=== PATIENT | female | born 1945 | race Caucasian/White ===

== ENCOUNTER 2022-02-04 14:48 | Outpatient (CLI) | payer MEDICARE | END 2022-02-04 14:49 | disposition home or self-care (01) | LOC: CSHULT 14:48 | PROVIDERS: ATTEND Internal Medicine | DX: R06.00 Dyspnea, unspecified (principal); I51.9 Heart disease, unspecified | CPT/HCPCS: 93306 ==

== ENCOUNTER 2022-02-05 09:36 | Outpatient (CLI) | payer MEDICARE | END 2022-02-05 09:37 | disposition home or self-care (01) | LOC: CSHLAB 09:36 | PROVIDERS: ATTEND Internal Medicine | DX: Z20.822 Contact with and (suspected) exposure to COVID-19 (principal) | CPT/HCPCS: 87811 ==

== ENCOUNTER 2022-02-09 14:19 | Outpatient (CLI) | payer MEDICARE | END 2022-02-09 14:20 | disposition home or self-care (01) | LOC: CSHCP 14:19 | PROVIDERS: ATTEND Internal Medicine | DX: R06.00 Dyspnea, unspecified (principal) | CPT/HCPCS: 94010; 94618; 94729; 94760 ==